=== PATIENT | male | born 1970 | race African-American/Black ===

== ENCOUNTER 2016-09-26 15:22 | Inpatient (IN) | payer MEDICAID ==
[~2016-09-26] VITALS: Ht 198.1 cm; Wt 134.0 kg
[2016-09-26] MEDS ORDERED: SODIUM CHLORIDE FLUSH 10ML SYR IVF ONE (15:30)
[2016-09-26] MEDS ORDERED: ALBUTEROL/IPRATROPIUM 2.5MG/0.5MG, 3 ML NPPB ONE (15:30)
[2016-09-26] MEDS ORDERED: ALBUTEROL/IPRATROPIUM 2.5MG/0.5MG, 3 ML ONE ×2 (15:47→20:58)
[2016-09-26 16:00] LABS: BLOOD UREA NITROGEN 15 mg/dL (7-18)
[2016-09-26 16:05] LABS: IS PT STATUS REG ER OR PRE ER? YES
[2016-09-26] MEDS ORDERED: FUROSEMIDE 20 MG/2 ML IV ONE (16:30)
[2016-09-26] MEDS ORDERED: NITROGLYCERIN OINT 2%, 1GM TP ONE ×2 (16:30→16:37)
[2016-09-26] MEDS ORDERED: FUROSEMIDE 40 MG/4 ML ONE (16:36)
[2016-09-26] MEDS ORDERED: ASPIRIN 81 MG TABLET CHEW ONE ×2 (16:37)
[2016-09-26 16:44] LABS: DIFF TOTAL CELLS COUNTED 100 CELL DIFF
[2016-09-26] MEDS ORDERED: BENZONATATE 100 MG CAPSULE PO SCH (17:00)
[2016-09-26] MEDS ORDERED: ASPIRIN 81 MG TABLET CHEW PO ONE (17:00)
[2016-09-26 17:16] LABS: VERIFY COUNTS? YES
[2016-09-26] MEDS ORDERED: ENALAPRILAT 1.25 MG/ML, 2ML IV ONE (17:30)
[2016-09-26] MEDS ORDERED: ENALAPRILAT 1.25 MG/ML, 2ML ONE (17:34)
[2016-09-26] MEDS ORDERED: METF100010 PO (17:54)
[2016-09-26] MEDS ORDERED: METF500T27 PO (17:54)
[2016-09-26] MEDS ORDERED: AMLO10TA4 PO (17:56)
[2016-09-26] MEDS ORDERED: ALBU1.25 NEB (17:56)
[2016-09-26] MEDS ORDERED: LABETALOL 100 MG TABLET PO ONE (18:00)
[2016-09-26] MEDS ORDERED: LABETALOL 5MG/ML, 20ML IVPush ONE (18:00)
[2016-09-26] MEDS ORDERED: ALBU8.5H3 INH (18:01)
[2016-09-26] MEDS ORDERED: BENZONATATE 100 MG CAPSULE PO ONE (18:07)
[2016-09-26] MEDS ORDERED: morphine SULFATE 10 MG/ML, 1ML IVPush PRN (20:00)
[2016-09-26] MEDS ORDERED: LABETALOL 5MG/ML, 20ML IVPush PRN (20:00)
[2016-09-26] MEDS ORDERED: NITROGLYCERIN 0.4 MG BOTTLE (25 TABS) SL PRN (20:00)
[2016-09-26] MEDS ORDERED: ONDANSETRON 2MG/ML, 2ML IVPush PRN (20:00)
[2016-09-26 20:52] VITALS: BP 152/88
[2016-09-26] MEDS: FUROSEMIDE 20 MG/2 ML IV SCH (21:14)
[2016-09-26] MEDS: POTASSIUM CHLORIDE 20 MEQ TAB.ER.PRT PO SCH (21:14)
[2016-09-26] MEDS: ENOXAPARIN 40 MG/0.4 ML SQ SCH (21:15)
[2016-09-26] MEDS ORDERED: ALBUTEROL/IPRATROPIUM 2.5MG/0.5MG, 3 ML NPPB PRN (22:00)
[2016-09-26 22:16] LABS: IS PT STATUS REG ER OR PRE ER? NO
[2016-09-26] MEDS ORDERED: ENALAPRILAT 1.25 MG/ML, 2ML IV PRN (23:30)
[2016-09-27 01:44] VITALS: BP 154/94
[2016-09-27 03:53] LABS: BLOOD UREA NITROGEN 16 mg/dL (7-18)
[2016-09-27 03:57] LABS: DIFF TOTAL CELLS COUNTED 100 CELL DIFF
[2016-09-27 04:06] LABS: IS PT STATUS REG ER OR PRE ER? NO
[2016-09-27 04:08] LABS: VERIFY COUNTS? YES
[2016-09-27] MEDS: FUROSEMIDE 20 MG/2 ML IV SCH ×2 (07:14→15:23)
[2016-09-27] MEDS: LABETALOL 100 MG TABLET PO SCH ×2 (07:15→15:23)
[2016-09-27 07:16] VITALS: BP 155/92
[2016-09-27] MEDS: ALBUTEROL/IPRATROPIUM 2.5MG/0.5MG, 3 ML NPPB SCH ×4 (07:35→19:43)
[2016-09-27] MEDS: POTASSIUM CHLORIDE 20 MEQ TAB.ER.PRT PO SCH ×2 (08:00→15:23)
[2016-09-27] MEDS ORDERED: REGADENOSON 0.4 MG/5 ML SYRINGE ONE (08:55)
[2016-09-27] MEDS: LISINOPRIL 5 MG TABLET PO SCH ×2 (11:00→19:55)
[2016-09-27 14:23] VITALS: BP 169/96
[2016-09-27] MEDS ORDERED: METHOCARBAMOL 500 MG TABLET PO ONE (18:30)
[2016-09-27] MEDS: ENOXAPARIN 40 MG/0.4 ML SQ SCH (19:56)
[2016-09-27 20:00] VITALS: BP 149/81
[2016-09-28 03:51] VITALS: BP 156/96
[2016-09-28] MEDS: ALBUTEROL/IPRATROPIUM 2.5MG/0.5MG, 3 ML NPPB SCH ×4 (05:39→19:15)
[2016-09-28] MEDS: FUROSEMIDE 20 MG/2 ML IV SCH (05:49)
[2016-09-28 07:45] VITALS: BP 156/103
[2016-09-28] MEDS: LISINOPRIL 5 MG TABLET PO SCH (08:18)
[2016-09-28] MEDS: POTASSIUM CHLORIDE 20 MEQ TAB.ER.PRT PO SCH ×2 (08:18→16:29)
[2016-09-28] MEDS: LABETALOL 100 MG TABLET PO SCH ×4 (08:18→21:13)
[2016-09-28] MEDS: LISINOPRIL 10 MG TABLET PO SCH ×2 (09:00→21:12)
[2016-09-28 12:46] VITALS: BP 160/91
[2016-09-28] MEDS: NICOTINE 14MG/24 HR PATCH.TD24 TD SCH (13:00)
[2016-09-28 13:14] LABS: BLOOD UREA NITROGEN 20 mg/dL (7-18)
[2016-09-28] MEDS ORDERED: CARVEDILOL 3.125 MG TABLET PO SCH (18:00)
[2016-09-28 19:21] VITALS: BP 154/86
[2016-09-28] MEDS: ENOXAPARIN 40 MG/0.4 ML SQ SCH (21:10)
[2016-09-29 02:00] VITALS: BP 114/69
[2016-09-29] MEDS: ALBUTEROL/IPRATROPIUM 2.5MG/0.5MG, 3 ML NPPB SCH ×3 (03:59→11:42)
[2016-09-29 05:36] LABS: BLOOD UREA NITROGEN 21 mg/dL (7-18)
[2016-09-29 07:36] VITALS: BP 146/94
[2016-09-29] MEDS ORDERED: FUROSEMIDE 40 MG TABLET PO SCH (09:00)
[2016-09-29] MEDS ORDERED: SODIUM CHLORIDE 0.9% 1,000 ML IV ONE (10:32)
[2016-09-29] MEDS: LABETALOL 100 MG TABLET PO SCH (10:53)
[2016-09-29] MEDS: LISINOPRIL 10 MG TABLET PO SCH (10:53)
[2016-09-29] MEDS: POTASSIUM CHLORIDE 20 MEQ TAB.ER.PRT PO SCH (10:53)
[2016-09-29 12:50] VITALS: BP 145/92
[2016-09-29] MEDS: NICOTINE 14MG/24 HR PATCH.TD24 TD SCH (13:00)
[2016-09-29] MEDS ORDERED: FURO40TA6 PO (13:35)
[2016-09-29] MEDS ORDERED: PRED10TA PO (13:35)
[2016-09-29] MEDS ORDERED: LABE100T3 PO (13:35)
[2016-09-29] MEDS ORDERED: LISI-167 PO (13:35)
[2016-09-29] MEDS ORDERED: POTA20TA6 PO (13:35)
== END 2016-09-29 15:09 | disposition home or self-care (01) | DRG 280 ==
LOC: ED 15:43 → EDIP 18:37 → 5SO 20:15
PROVIDERS: ADMIT Internal Medicine; ATTEND Internal Medicine
DX: I21.4 Non-ST elevation (NSTEMI) myocardial infarction (principal); J96.01 Acute respiratory failure with hypoxia; I50.43 Acute on chronic combined systolic (congestive) and diastolic (congestive) heart failure; J44.1 Chronic obstructive pulmonary disease with (acute) exacerbation; J45.901 Unspecified asthma with (acute) exacerbation; E44.1 Mild protein-calorie malnutrition; I16.9 Hypertensive crisis, unspecified; I11.0 Hypertensive heart disease with heart failure; Z91.19 Patient's noncompliance with other medical treatment and regimen; Z91.14 Patient's other noncompliance with medication regimen; E11.9 Type 2 diabetes mellitus without complications; F17.200 Nicotine dependence, unspecified, uncomplicated; Z68.34 Body mass index [BMI] 34.0-34.9, adult; E66.9 Obesity, unspecified; I27.2 Other secondary pulmonary hypertension; I27.81 Cor pulmonale (chronic); I34.0 Nonrheumatic mitral (valve) insufficiency; D64.9 Anemia, unspecified
CPT/HCPCS: 36415; 71010; 78452; 80048; 80061; 82040; 83036; 83735; 83880; 84100; 84132; 84484; 85025; 85610; 93005; 93017; 93306; 94640; 96374; 96375; J1650; J2785; J7620; A9502; C9898; J1940; J7512

== ENCOUNTER 2016-12-16 08:17 | Emergency (ER) | payer MEDICAID ==
[~2016-12-16] VITALS: Ht 198.1 cm; Wt 136.0 kg
[~2016-12-16 08:17] MED LIST: ALBU1.25 NEB; ALBU8.5H8 INH; AMLO10TA4 PO; FURO40TA6 PO; LABE100T3 PO; LISI-167 PO; METF100010 PO; METF500T27 PO; POTA20TA6 PO; PRED10TA PO
[2016-12-16 08:50] LABS: HEMATOCRIT 42.6 % (39.2-51.8); HEMOGLOBIN 13.9 g/dL (13.7-18.0); WHITE BLOOD COUNT 6.1 x10^3/uL (3.4-10)
[2016-12-16 09:03] LABS: BLOOD UREA NITROGEN 16 mg/dL (7-18)
[2016-12-16] MEDS ORDERED: LABETALOL 100 MG TABLET PO ONE (09:30)
[2016-12-16 09:38] VITALS: BP 193/136
[2016-12-16 09:40] LABS: IS PT STATUS REG ER OR PRE ER? YES
== END 2016-12-16 10:55 | disposition home or self-care (01) ==
LOC: ED 09:07
DX: Z76.0 Encounter for issue of repeat prescription (principal); I11.0 Hypertensive heart disease with heart failure; I50.9 Heart failure, unspecified; F12.10 Cannabis abuse, uncomplicated; K08.89 Other specified disorders of teeth and supporting structures; J45.909 Unspecified asthma, uncomplicated
CPT/HCPCS: 36415; 70450; 80048; 82040; 84484; 85025; 93005

== ENCOUNTER 2017-01-28 13:47 | Emergency (ER) | payer MEDICAID ==
[~2017-01-28] VITALS: Ht 198.1 cm; Wt 123.0 kg
[2017-01-28] MEDS ORDERED: ENALAPRILAT 1.25 MG/ML, 2ML IV ONE (14:00)
[2017-01-28] MEDS ORDERED: DIPHENHYDRAMINE 50 MG/ML, 1ML IVPush ONE (14:00)
[2017-01-28] MEDS ORDERED: PLEASE ENTER HEIGHT AND WEIGHT MC SCH (14:00)
[2017-01-28] MEDS ORDERED: ENALAPRILAT 1.25 MG/ML, 2ML ONE (14:18)
[2017-01-28] MEDS ORDERED: DIPHENHYDRAMINE 50 MG/ML, 1ML ONE (14:18)
[2017-01-28] MEDS ORDERED: ALBUTEROL/IPRATROPIUM 2.5MG/0.5MG, 3 ML NPPB ONE (14:30)
[2017-01-28] MEDS ORDERED: ALBUTEROL/IPRATROPIUM 2.5MG/0.5MG, 3 ML ONE (14:30)
[2017-01-28 14:37] LABS: ASPARTATE AMINO TRANSFERASE 21 U/L (15-37); BLOOD UREA NITROGEN 11 mg/dL (7-18)
[2017-01-28 14:42] LABS: IS PT STATUS REG ER OR PRE ER? YES
[2017-01-28 14:43] LABS: HEMATOCRIT 42.5 % (39.2-51.8); HEMOGLOBIN 14.2 g/dL (13.7-18.0); WHITE BLOOD COUNT 6.6 x10^3/uL (3.4-10)
[2017-01-28] MEDS ORDERED: SODIUM CHLORIDE FLUSH 10ML SYR IVF ONE (15:00)
[2017-01-28] MEDS ORDERED: SODIUM CHLORIDE 0.9% 1,000ML IVBOLUS ONE (15:00)
[2017-01-28 15:17] VITALS: BP 161/124
[2017-01-28] MEDS ORDERED: ACETAMINOPHEN 500 MG TABLET ONE (16:30)
[2017-01-28] MEDS ORDERED: ACETAMINOPHEN 325 MG TABLET PO ONE (17:00)
[2017-01-28] MEDS ORDERED: ACETAMINOPHEN 500 MG TABLET PO ONE (17:00)
== END 2017-01-28 16:54 | disposition home or self-care (01) ==
LOC: ED 15:03 → UNDOADMIN 15:11 → EDIP 15:11 → ED 16:48
DX: I16.9 Hypertensive crisis, unspecified (principal); R51 Headache; I10 Essential (primary) hypertension; J45.909 Unspecified asthma, uncomplicated
CPT/HCPCS: 36415; 71010; 80053; 83880; 84484; 85025; 93005; 94640; 96361; 96374; 96375; 99291; J1200; J7030; J7620

== ENCOUNTER 2018-01-05 04:27 | Emergency (ER) | payer MEDICAID ==
[~2018-01-05] VITALS: Ht 198.1 cm; Wt 151.0 kg
[~2018-01-05 04:27] MED LIST changes: -LABE100T3 PO; +LABE100T6 PO
[2018-01-05 04:29] VITALS: BP 199/118
[2018-01-05] MEDS ORDERED: KETOROLAC 30 MG/1 ML IM ONE (05:00)
[2018-01-05] MEDS ORDERED: DEXAMETHASONE 4 MG TABLET PO ONE (05:00)
[2018-01-05] MEDS ORDERED: DEXAMETHASONE 4 MG TABLET ONE (05:09)
[2018-01-05] MEDS ORDERED: KETOROLAC 30 MG/1 ML ONE (05:10)
== END 2018-01-05 05:27 | disposition home or self-care (01) ==
LOC: ED 05:15
DX: L02.01 Cutaneous abscess of face (principal); I11.0 Hypertensive heart disease with heart failure; I50.9 Heart failure, unspecified; I25.2 Old myocardial infarction; E11.9 Type 2 diabetes mellitus without complications; J45.909 Unspecified asthma, uncomplicated
CPT/HCPCS: 96372; 99283; J1885

== ENCOUNTER 2018-01-21 04:06 | Emergency (ER) | payer MEDICAID ==
[~2018-01-21] VITALS: Ht 190.5 cm; Wt 152.5 kg
[2018-01-21 05:15] LABS: ALANINE AMINOTRANSFERASE 41 U/L (12-78); ALBUMIN 3.2 g/dL (3.4-5.0); ANION GAP 7 mmol/L (5-15); CALCIUM 8.7 mg/dL (8.5-10.1); CHLORIDE 106 mmol/L (98-107); CREATININE 0.97 mg/dL (0.7-1.3)
[2018-01-21 05:17] LABS: BASOPHILS # (AUTO) 0.04 x10^3/uL (0-0.1); BASOPHILS % (AUTO) 1 % (0-1); EOSINOPHILS # (AUTO) 0.14 x10^3/uL (0-0.4); EOSINOPHILS % (AUTO) 2 % (1-7); LYMPHOCYTES # (AUTO) 2.39 x10^3/uL (1-3.4); LYMPHOCYTES % (AUTO) 34 % (22-44); MD NO; MEAN CORPUSCULAR HEMOGLOBIN 26.7 pg (27.5-34.5); MEAN CORPUSCULAR HGB CONC 33.1 g/dL (33.2-36.2); MEAN CORPUSCULAR VOLUME 80.7 fL (81-97); MEAN PLATELET VOLUME 7.5 fL (7.4-10.4); MONOCYTES # (AUTO) 0.46 x10^3/uL (0.2-0.8); MONOCYTES % (AUTO) 7 % (2-9); NEUTROPHILS # (AUTO) 3.92 x10^3/uL (1.8-6.8); NEUTROPHILS % (AUTO) 56 % (42-75); PLATELET COUNT 325 x10^3/uL (130-400); RED BLOOD COUNT 4.71 x10^6/uL (4.38-5.82); RED CELL DISTRIBUTION WIDTH 14.1 % (9.4-14.8)
[2018-01-21 05:19] LABS: ALKALINE PHOSPHATASE 79 U/L (45-117); BILIRUBIN,TOTAL 0.2 mg/dL (0.2-1.0)
[2018-01-21] MEDS ORDERED: LISINOPRIL 10 MG TABLET ONE (05:43)
[2018-01-21] MEDS ORDERED: FUROSEMIDE 40 MG TABLET ONE (05:43)
[2018-01-21 05:54] VITALS: BP 145/86
[2018-01-21] MEDS ORDERED: LISINOPRIL 10 MG TABLET PO ONE (06:00)
[2018-01-21] MEDS ORDERED: FUROSEMIDE 40 MG TABLET PO ONE (06:00)
== END 2018-01-21 06:32 | disposition home or self-care (01) ==
LOC: ED 05:50
DX: R60.0 Localized edema (principal); M79.661 Pain in right lower leg; M79.671 Pain in right foot; M25.571 Pain in right ankle and joints of right foot; M79.662 Pain in left lower leg; M79.672 Pain in left foot; M25.572 Pain in left ankle and joints of left foot; I11.0 Hypertensive heart disease with heart failure; I50.9 Heart failure, unspecified; J45.909 Unspecified asthma, uncomplicated; E11.9 Type 2 diabetes mellitus without complications; I25.2 Old myocardial infarction; Z72.9 Problem related to lifestyle, unspecified
CPT/HCPCS: 36415; 71045; 80053; 83880; 85025; 93005; 93970; 99285

== ENCOUNTER 2018-09-10 12:21 | Observation (INO) | payer MEDICAID ==
[~2018-09-10] VITALS: Ht 198.1 cm; Wt 133.6 kg
--- NOTE | 2018-09-10 12:56 | NUR ---
FSBS >600, STAT GLUCOSE SENT TO LAB
[2018-09-10 13:04] LABS: MICROSCOPIC NOT IND
[2018-09-10 13:04] LABS: ALANINE AMINOTRANSFERASE 30 U/L (12-78); ALBUMIN 3.7 g/dL (3.4-5.0); ANION GAP 11 mmol/L (5-15); CALCIUM 9.2 mg/dL (8.5-10.1); CHLORIDE 89 mmol/L (98-107)
[2018-09-10 13:08] LABS: ALKALINE PHOSPHATASE 96 U/L (45-117); BILIRUBIN,TOTAL 0.5 mg/dL (0.2-1.0); CREATININE 1.82 mg/dL (0.7-1.3); TOTAL PROTEIN 8.5 g/dL (6.4-8.2)
[2018-09-10 13:08] LABS: CULTURE INDICATED? NO
[2018-09-10 13:24] LABS: BASOPHILS # (AUTO) 0.04 x10^3/uL (0-0.1); BASOPHILS % (AUTO) 1 % (0-1); EOSINOPHILS # (AUTO) 0.05 x10^3/uL (0-0.4); EOSINOPHILS % (AUTO) 1 % (1-7); LYMPHOCYTES # (AUTO) 2.68 x10^3/uL (1-3.4); LYMPHOCYTES % (AUTO) 33 % (22-44); MD NO; MEAN CORPUSCULAR HEMOGLOBIN 27.4 pg (27.5-34.5); MEAN CORPUSCULAR HGB CONC 33.1 g/dL (33.2-36.2); MEAN CORPUSCULAR VOLUME 82.7 fL (81-97); MEAN PLATELET VOLUME 8.8 fL (7.4-10.4); MONOCYTES # (AUTO) 0.54 x10^3/uL (0.2-0.8); MONOCYTES % (AUTO) 7 % (2-9); NEUTROPHILS # (AUTO) 4.76 x10^3/uL (1.8-6.8); NEUTROPHILS % (AUTO) 59 % (42-75); PLATELET COUNT 344 x10^3/uL (130-400); RED BLOOD COUNT 5.62 x10^6/uL (4.38-5.82)
[2018-09-10] MEDS ORDERED: SODIUM CHLORIDE 0.9% 1,000ML IVBOLUS ONE (13:30)
[2018-09-10] MEDS ORDERED: INSULIN REGULAR 100 UNITS/ML, 3ML VIAL IVPush ONE (13:30)
[2018-09-10] MEDS ORDERED: SODIUM CHLORIDE FLUSH 10ML SYR IVF ONE (13:30)
[2018-09-10 13:33] LABS: PH, VENOUS 7.391 pH (7.320-7.420)
[2018-09-10] MEDS ORDERED: INSULIN SINGLE DOSE, ER SQ-INSULIN ONE (13:41)
[2018-09-10 13:43] LABS: ACETONE, SERUM Small (20mg/dL) mg/dL (Negative)
[2018-09-10] MEDS ORDERED: AMLO-150 PO (15:25)
[2018-09-10] MEDS ORDERED: GLUCAGON 1 MG IM PRN (16:00)
[2018-09-10] MEDS ORDERED: DEXTROSE 50%, 50ML SYRINGE IVPush PRN (16:00)
[2018-09-10] MEDS ORDERED: POLYETHYLENE GLYCOL 17 GM PACKET PO PRN (16:00)
[2018-09-10] MEDS ORDERED: hydrALAzine 20 MG/ML, 1ML IVPush PRN (16:00)
[2018-09-10] MEDS ORDERED: DEXTROSE 4 GM TAB.CHEW PO PRN (16:00)
[2018-09-10] MEDS ORDERED: ACETAMINOPHEN 325 MG TABLET PO PRN (16:00)
[2018-09-10] MEDS: LACTATED RINGERS 1,000 ML IV SCH (16:00)
[2018-09-10 16:40] LABS: HEMOGLOBIN A1C 13.6 % (4.2-6.3)
[2018-09-10 16:50] VITALS: BP 124/80
[2018-09-10 18:10] LABS: CHOL/HDL RATIO 4.3
[2018-09-10] MEDS: NICOTINE 21 MG/24 HR PATCH.TD24 TD SCH (18:38)
[2018-09-10] MEDS: INSULIN LISPRO 100 UNITS/ML, PEN SQ-INSULIN SCH ×2 (18:45→22:04)
[2018-09-10] MEDS: HEPARIN 5,000 UNITS/ML, 1ML SQ SCH (18:46)
[2018-09-10 18:58] VITALS: BP 121/76
[2018-09-10] MEDS ORDERED: ALBUTEROL SULFATE 2.5 MG/3 ML NPPB PRN (19:30)
[2018-09-10] MEDS: SODIUM CHLORIDE FLUSH 10ML SYR IVF SCH ×2 (21:00→22:06)
[2018-09-10] MEDS: INSULIN GLARGINE 100 UNITS/ML, PEN SQ-INSULIN SCH (22:03)
[2018-09-11 01:51] VITALS: BP 124/87
[2018-09-11] MEDS: HEPARIN 5,000 UNITS/ML, 1ML SQ SCH ×4 (01:51→22:39)
[2018-09-11] MEDS: LACTATED RINGERS 1,000 ML IV SCH ×3 (01:51→16:32)
[2018-09-11 05:55] LABS: BASOPHILS # (AUTO) 0.03 x10^3/uL (0-0.1); BASOPHILS % (AUTO) 0 % (0-1); EOSINOPHILS # (AUTO) 0.12 x10^3/uL (0-0.4); EOSINOPHILS % (AUTO) 2 % (1-7); LYMPHOCYTES % (AUTO) 44 % (22-44); MD NO; MEAN CORPUSCULAR HEMOGLOBIN 27.4 pg (27.5-34.5); MEAN CORPUSCULAR HGB CONC 32.8 g/dL (33.2-36.2); MEAN CORPUSCULAR VOLUME 83.6 fL (81-97); MEAN PLATELET VOLUME 8.6 fL (7.4-10.4); MONOCYTES # (AUTO) 0.52 x10^3/uL (0.2-0.8); MONOCYTES % (AUTO) 8 % (2-9); NEUTROPHILS # (AUTO) 2.95 x10^3/uL (1.8-6.8); NEUTROPHILS % (AUTO) 45 % (42-75); PLATELET COUNT 303 x10^3/uL (130-400); RED CELL DISTRIBUTION WIDTH 13.9 % (9.4-14.8)
[2018-09-11 06:04] LABS: ANION GAP 8 mmol/L (5-15); CALCIUM 8.7 mg/dL (8.5-10.1); CHLORIDE 99 mmol/L (98-107)
[2018-09-11 06:17] LABS: ALANINE AMINOTRANSFERASE 27 U/L (12-78); ALKALINE PHOSPHATASE 79 U/L (45-117); BILIRUBIN,TOTAL 0.5 mg/dL (0.2-1.0); CREATININE 1.06 mg/dL (0.7-1.3); THYROID STIMULATING HORMONE 0.464 mIU/L (0.358-3.740); TOTAL PROTEIN 7.3 g/dL (6.4-8.2)
[2018-09-11] MEDS ORDERED: POTASSIUM CHLORIDE 20 MEQ TAB.ER.PRT PO ONE ×2 (07:00→18:00)
[2018-09-11] MEDS: INSULIN LISPRO 100 UNITS/ML, PEN SQ-INSULIN SCH ×4 (08:27→22:38)
[2018-09-11] MEDS: SODIUM CHLORIDE FLUSH 10ML SYR IVF SCH ×4 (09:00→21:00)
[2018-09-11 09:01] VITALS: BP 130/85
[2018-09-11] MEDS: INSULIN GLARGINE 100 UNITS/ML, PEN SQ-INSULIN SCH ×2 (09:16→22:38)
[2018-09-11 13:00] VITALS: BP 135/74
[2018-09-11] MEDS: NICOTINE 21 MG/24 HR PATCH.TD24 TD SCH (16:33)
[2018-09-11] MEDS: metFORMIN 850 MG TABLET PO SCH (17:49)
[2018-09-11] MEDS ORDERED: INSULIN GLARGINE 100 UNITS/ML, PEN SQ-INSULIN ONE (18:00)
[2018-09-11] MEDS ORDERED: INSULIN LISPRO 100 UNITS/ML, PEN SQ-INSULIN ONE (18:00)
[2018-09-11 19:30] VITALS: BP 142/80
[2018-09-11] MEDS ORDERED: ATORVASTATIN 40 MG TABLET PO SCH (21:00)
[2018-09-12] MEDS: LACTATED RINGERS 1,000 ML IV SCH ×2 (00:07→08:48)
[2018-09-12 01:14] VITALS: BP 144/84
[2018-09-12] MEDS ORDERED: ASPIRIN 81 MG TABLET EC PO SCH (06:00)
[2018-09-12 07:10] VITALS: BP 155/103
[2018-09-12 07:16] LABS: MEAN CORPUSCULAR HEMOGLOBIN 26.6 pg (27.5-34.5); MEAN CORPUSCULAR HGB CONC 32.1 g/dL (33.2-36.2); MEAN CORPUSCULAR VOLUME 82.6 fL (81-97); MEAN PLATELET VOLUME 8.2 fL (7.4-10.4); PLATELET COUNT 293 x10^3/uL (130-400); RED BLOOD COUNT 4.95 x10^6/uL (4.38-5.82); RED CELL DISTRIBUTION WIDTH 14.3 % (9.4-14.8)
[2018-09-12 07:30] LABS: ALBUMIN 2.9 g/dL (3.4-5.0); ANION GAP 7 mmol/L (5-15); CALCIUM 8.7 mg/dL (8.5-10.1); CHLORIDE 104 mmol/L (98-107); CREATININE 0.91 mg/dL (0.7-1.3)
[2018-09-12 07:34] LABS: BASOPHILS # (AUTO) 0.02 x10^3/uL (0-0.1); BASOPHILS % (AUTO) 0 % (0-1); EOSINOPHILS # (AUTO) 0.17 x10^3/uL (0-0.4); EOSINOPHILS % (AUTO) 3 % (1-7); LYMPHOCYTES # (AUTO) 2.31 x10^3/uL (1-3.4); LYMPHOCYTES % (AUTO) 39 % (22-44); MD SCAN; MONOCYTES % (AUTO) 7 % (2-9); NEUTROPHILS # (AUTO) 3.08 x10^3/uL (1.8-6.8); NEUTROPHILS % (AUTO) 52 % (42-75)
[2018-09-12] MEDS: metFORMIN 850 MG TABLET PO SCH (08:45)
[2018-09-12] MEDS: HEPARIN 5,000 UNITS/ML, 1ML SQ SCH (08:46)
[2018-09-12] MEDS: INSULIN GLARGINE 100 UNITS/ML, PEN SQ-INSULIN SCH (08:47)
[2018-09-12] MEDS: INSULIN LISPRO 100 UNITS/ML, PEN SQ-INSULIN SCH (08:47)
[2018-09-12] MEDS ORDERED: LISINOPRIL 20 MG TABLET PO ONE (09:30)
[2018-09-12] MEDS ORDERED: GLIPizide ER 5 MG TABLET PO SCH (10:00)
[2018-09-12] MEDS ORDERED: ALBUTEROL SULFATE 2.5 MG/3 ML NPPB PRN (10:00)
[2018-09-13] MEDS ORDERED: LISINOPRIL 20 MG TABLET PO SCH (09:00)
== END 2018-09-12 09:43 | disposition left against medical advice (07) ==
LOC: ED 14:15 → INTOOBSV 14:53 → EDIP 14:53 → 3NE 16:16
PROVIDERS: ADMIT Internal Medicine; ATTEND Internal Medicine
DX: E11.65 Type 2 diabetes mellitus with hyperglycemia (principal); N17.9 Acute kidney failure, unspecified; I11.0 Hypertensive heart disease with heart failure; I50.9 Heart failure, unspecified; H53.9 Unspecified visual disturbance; E87.1 Hypo-osmolality and hyponatremia; J44.9 Chronic obstructive pulmonary disease, unspecified; F17.210 Nicotine dependence, cigarettes, uncomplicated; E66.9 Obesity, unspecified; Z91.14 Patient's other noncompliance with medication regimen; Z68.34 Body mass index [BMI] 34.0-34.9, adult; Z79.4 Long term (current) use of insulin
CPT/HCPCS: 36415; 71045; 76770; 80053; 80061; 80069; 81003; 82010; 82803; 82947; 82962; 83036; 83735; 83930; 84443; 85025; 93005; 94640; 96361; 96372; 96374; 99285; G0378; J1644; J1815; J7030; J7120; J7613

== ENCOUNTER 2018-10-07 23:49 | Emergency (ER) | payer MEDICAID ==
[~2018-10-07] VITALS: Ht 198.1 cm; Wt 133.6 kg
[~2018-10-07 23:49] MED LIST changes: +AMLO-150 PO
[2018-10-08] MEDS ORDERED: DIPHENHYDRAMINE 50 MG/ML, 1ML ONE (00:09)
[2018-10-08] MEDS ORDERED: FAMOTIDINE 20 MG/2 ML ONE (00:09)
[2018-10-08] MEDS ORDERED: methylPREDNISolone SOD SUCC 125 MG/2 ML ONE (00:09)
--- NOTE | 2018-10-08 00:22 | NUR ---
PIV started, pt medicated per JUN. Pt on all monitors, NSR noted.
[2018-10-08] MEDS ORDERED: SODIUM CHLORIDE FLUSH 10ML SYR IVF ONE (00:30)
[2018-10-08] MEDS ORDERED: methylPREDNISolone SOD SUCC 125 MG/2 ML IVPush ONE (00:30)
[2018-10-08] MEDS ORDERED: DIPHENHYDRAMINE 50 MG/ML, 1ML IVPush ONE (00:30)
[2018-10-08] MEDS ORDERED: FAMOTIDINE 20 MG/2 ML IVPush ONE (00:30)
--- NOTE | 2018-10-08 00:39 | NUR ---
Pt resting on gurney, cool wet gauze on lip for comfort, no decrease in swelling noted at this time. Pt states that he feels very sleepy and pt assured that he may rest. Side rails x 2 up, call light on pt's lap.
--- NOTE | 2018-10-08 01:34 | NUR ---
Dr. Mcqueen at bedside to discuss ED findings and POC. Swelling noted to be unchanged to upper lip/face. Pt requesting food and beverages, ok per MD. Pt requesting to be discharged and states that he will return if swelling worsens.
[2018-10-08 01:41] VITALS: BP 146/87
--- NOTE | 2018-10-08 02:04 | NUR ---
Patient/Caregiver given discharge instructions and they have confirmed that they understand the instructions. Patient ambulatory with steady gait.
== END 2018-10-08 02:05 | disposition home or self-care (01) ==
LOC: ED 10-08 00:35
DX: T78.3XXA Angioneurotic edema, initial encounter (principal); F17.200 Nicotine dependence, unspecified, uncomplicated; I25.2 Old myocardial infarction; I50.9 Heart failure, unspecified; I11.0 Hypertensive heart disease with heart failure; E11.9 Type 2 diabetes mellitus without complications; J45.909 Unspecified asthma, uncomplicated
CPT/HCPCS: 96374; 96375; 99283; J1200; J2930; J3490

== ENCOUNTER 2019-11-11 14:23 | Emergency (ER) | payer MEDICAID ==
[~2019-11-11] VITALS: Ht 198.1 cm; Wt 143.0 kg
[~2019-11-11 14:23] MED LIST changes: +GLYBURIDE; +METF500T17 PO
--- NOTE | 2019-11-11 15:00 | NUR ---
PT BIB P/V FOR UPPER LIP SWELLING AFTER TAKING LISINOPRIL. PT HAD BEEN TOLD TO STAOP TAKING LISINOPRIL AFTER SAME INCIDENT IN THE PAST, STARTED ON AMLODIPINE BUT WAS STOPPED DUE TO LEG SWELLING. PT WAS THEN STARTED ON LISINOPRIL AGAIN PER PMD.
[2019-11-11 15:58] LABS: MEAN CORPUSCULAR HEMOGLOBIN 26.1 pg (27.5-34.5); MEAN CORPUSCULAR HGB CONC 31.9 g/dL (33.2-36.2); MEAN PLATELET VOLUME 7.5 fL (7.4-10.4); PLATELET COUNT 375 x10^3/uL (130-400); RED BLOOD COUNT 5.05 x10^6/uL (4.38-5.82); RED CELL DISTRIBUTION WIDTH 14.9 % (9.4-14.8)
[2019-11-11 16:04] LABS: ALANINE AMINOTRANSFERASE 24 U/L (12-78); ALBUMIN 3.4 g/dL (3.4-5.0); ANION GAP 5 mmol/L (5-15); CALCIUM 6.4 mg/dL (8.5-10.1); CHLORIDE 102 mmol/L (98-107); CREATININE 1.07 mg/dL (0.7-1.3)
[2019-11-11 16:07] LABS: ALKALINE PHOSPHATASE 60 U/L (45-117); BILIRUBIN,TOTAL 0.4 mg/dL (0.2-1.0); TOTAL PROTEIN 7.7 g/dL (6.4-8.2)
[2019-11-11] MEDS ORDERED: DIPHENHYDRAMINE 50 MG CAPSULE PO ONE (16:14)
[2019-11-11] MEDS ORDERED: POTASSIUM CHLORIDE 20 MEQ PACKET PO ONE (16:30)
[2019-11-11] MEDS ORDERED: CALCIUM GLUCONATE 0.46MEQ/1ML IVPush ONE (16:30)
[2019-11-11 16:40] LABS: BASOPHILS % (AUTO) 0 % (0-1); EOSINOPHILS # (AUTO) 0.05 x10^3/uL (0-0.4); EOSINOPHILS % (AUTO) 1 % (1-7); LYMPHOCYTES # (AUTO) 2.01 x10^3/uL (1-3.4); LYMPHOCYTES % (AUTO) 20 % (22-44); MD SCAN; MONOCYTES # (AUTO) 0.36 x10^3/uL (0.2-0.8); MONOCYTES % (AUTO) 4 % (2-9); NEUTROPHILS # (AUTO) 7.45 x10^3/uL (1.8-6.8); NEUTROPHILS % (AUTO) 76 % (42-75)
[2019-11-11] MEDS ORDERED: POTASSIUM CHLORIDE 20 MEQ TAB.ER.PRT ONE (17:03)
[2019-11-11] MEDS ORDERED: DIPHENHYDRAMINE 50 MG CAPSULE ONE (17:03)
--- NOTE | 2019-11-11 17:16 | NUR ---
pt medicated as ordered. pt o get calcium over one hour then will be dc'd per md.
[2019-11-11 17:17] VITALS: BP 173/105
[2019-11-11] MEDS ORDERED: SODIUM CHLORIDE FLUSH 10ML SYR IVF ONE (17:30)
[2019-11-11] MEDS ORDERED: CALCIUM GLUCONATE 4.6 MEQ in SODIUM CHLORIDE 0.9% 100 ML IV ONE (17:30)
== END 2019-11-11 18:27 | disposition home or self-care (01) ==
LOC: ED 16:40
DX: T78.3XXA Angioneurotic edema, initial encounter (principal); R10.84 Generalized abdominal pain; I11.0 Hypertensive heart disease with heart failure; K59.00 Constipation, unspecified; E83.51 Hypocalcemia; E11.9 Type 2 diabetes mellitus without complications; I50.9 Heart failure, unspecified; I25.2 Old myocardial infarction; F17.200 Nicotine dependence, unspecified, uncomplicated
CPT/HCPCS: 36415; 74021; 80053; 83690; 83735; 85025; 96365; 99284; J0610; J7512

== ENCOUNTER 2020-04-03 09:57 | Inpatient (IN) | payer MEDICAID ==
[~2020-04-03] VITALS: Ht 198.1 cm; Wt 152.0 kg
--- NOTE | 2020-04-03 10:14 | NUR ---
PT IS A 49/M COMPLAINING OF SOB X 2 WEEKS. HE HAS BEEN TAKING NEB TREATMENTS AT HOME BUT RAN OUT OF THE MEDS. ALSO RAN OUT OF BP MEDS YESTERDAY. BP 195/130 THIS MORNING. PATIENT IS REQUESTING BREATHING TREATMENT. HE IS SPEAKING IN 3-4 WORD SENTENCES AND APPEARS TO BE IN SOME DISTRESS. CALL LIGHT WITHIN REACH.
--- NOTE | 2020-04-03 10:20 | NUR ---
PLACED PT ON 2L ON, SP02 MONITOR AND CARDIACT MONITOR
[2020-04-03] MEDS ORDERED: ALBUTEROL/IPRATROPIUM 2.5MG/0.5MG, 3 ML NPPB ONE (10:30)
[2020-04-03] MEDS ORDERED: DEXAMETHASONE 4 MG TABLET PO ONE (10:30)
[2020-04-03] MEDS ORDERED: SODIUM CHLORIDE 0.9% 1,000 ML IV ONE (10:30)
[2020-04-03] MEDS ORDERED: DEXAMETHASONE 4 MG TABLET ONE (10:42)
[2020-04-03] MEDS ORDERED: ALBUTEROL/IPRATROPIUM 2.5MG/0.5MG, 3 ML ONE (11:08)
[2020-04-03 11:10] LABS: BASOPHILS % (AUTO) 1 % (0-1); EOSINOPHILS % (AUTO) 2 % (1-7); LYMPHOCYTES % (AUTO) 37 % (22-44); MEAN CORPUSCULAR HEMOGLOBIN 26.6 pg (27.5-34.5); MEAN CORPUSCULAR HGB CONC 33.1 g/dL (33.2-36.2); MEAN PLATELET VOLUME 6.8 fL (7.4-10.4); MONOCYTES % (AUTO) 7 % (2-9); NEUTROPHILS % (AUTO) 53 % (42-75); PLATELET COUNT 355 x10^3/uL (130-400); RED BLOOD COUNT 4.13 x10^6/uL (4.38-5.82); RED CELL DISTRIBUTION WIDTH 15.3 % (9.4-14.8)
[2020-04-03 11:12] LABS: MD NO
--- NOTE | 2020-04-03 11:12 | NUR ---
MEDICATED PATIENT PER EMAR AND GAVE DUONEB TREATMENT. PER DR REED, NO IV NEEDED, WILL CANCEL FLUID ORDER. NO ADDITIONAL NEEDS AT THIS TIME.
[2020-04-03 11:20] LABS: ALBUMIN 3.5 g/dL (3.4-5.0); ANION GAP 6 mmol/L (5-15); CALCIUM 8.8 mg/dL (8.5-10.1); CHLORIDE 110 mmol/L (98-107); CREATININE 1.02 mg/dL (0.7-1.3)
[2020-04-03 11:24] LABS: TROPONIN I 0.113 ng/mL (0.000-0.045)
--- NOTE | 2020-04-03 11:32 | NUR ---
PT STATES THE BREATHING TREATMENT HELPED A LITTLE BUT HE IS STILL SOB. WILL RELAY THIS INFORMATION TO THE
[2020-04-03] MEDS ORDERED: CEFTRIAXONE PMX 1GM/50ML 50 ML IV ONE (12:00)
[2020-04-03] MEDS ORDERED: LABETALOL 5MG/ML, 20ML IVPush ONE (12:00)
[2020-04-03] MEDS ORDERED: AZITHROMYCIN 500 MG in SODIUM CHLORIDE 0.9% 250 ML IV ONE (12:00)
--- NOTE | 2020-04-03 12:00 | NUR ---
CT DELAYED DUE TO ONE ROOM CLOSED FOR COVID EXPOSURE
--- NOTE | 2020-04-03 12:13 | NUR ---
preceptor RN: IV attmept for CTA unsuccessful. primary RN notified
--- NOTE | 2020-04-03 12:29 | NUR ---
REPORT TO WAYNE CHEW FOR LUNCH BREAK
[2020-04-03] MEDS ORDERED: ASPIRIN 81 MG TABLET CHEW PO ONE (12:30)
[2020-04-03] MEDS ORDERED: ASPIRIN 81 MG TABLET CHEW ONE (12:41)
[2020-04-03] MEDS ORDERED: CEFTRIAXONE PMX 1GM/50ML 50 ML ONE (12:42)
[2020-04-03] MEDS ORDERED: LABETALOL 5MG/ML, 20ML ONE (12:43)
--- NOTE | 2020-04-03 12:55 | NUR ---
assumed care of pt. report from Anil CHEW. pt here for SOB and is still tachypneic after breathing tx. pt to have CTA. pt sitting up on gurney. no family at bedside
--- NOTE | 2020-04-03 13:10 | NUR ---
pt to RAD
[2020-04-03] MEDS ORDERED: OMNIPAQUE 350 MG/ML, 150 ML BOTTLE ONE (13:29)
--- NOTE | 2020-04-03 13:30 | NUR ---
pt has IV ABX ordered, but no BC have been draw, Elvia FAIR notified
--- NOTE | 2020-04-03 13:55 | NUR ---
lab at bedside to draw
--- NOTE | 2020-04-03 14:50 | NUR ---
spoke to Dr. Kenny regarding pending admit. COVID test to be cancelled per
--- NOTE | 2020-04-03 14:55 | NUR ---
pt is agitated and has removed all of his monitoing equipment pt updated on POC. monitoring equipment replaced. pt positioning for comfort
[2020-04-03] MEDS ORDERED: ALBUTEROL HFA 90 MCG/SPRAY INH PRN (15:00)
[2020-04-03] MEDS ORDERED: ONDANSETRON ODT 4 MG PO PRN (15:00)
[2020-04-03] MEDS ORDERED: POLYETHYLENE GLYCOL 17 GM PACKET PO PRN (15:00)
[2020-04-03] MEDS ORDERED: hydrALAzine 20 MG/ML, 1ML IV PRN (15:00)
[2020-04-03] MEDS ORDERED: ENOXAPARIN 40 MG/0.4 ML SQ SCH (15:00)
[2020-04-03] MEDS ORDERED: MELATONIN 5 MG TABLET PO PRN (15:00)
[2020-04-03] MEDS ORDERED: TRAZODONE 50MG TABLET PO PRN (15:00)
[2020-04-03] MEDS ORDERED: ACETAMINOPHEN 325 MG TABLET PO PRN (15:00)
--- NOTE | 2020-04-03 15:00 | NUR ---
lab at bedside to draw
--- NOTE | 2020-04-03 15:10 | NUR ---
pt has been updated on POC. hospital bed has been ordered. meal tray to be ordered. pt positioning for comfort
--- NOTE | 2020-04-03 15:12 | NUR ---
Dr. Kenny at bedside
--- NOTE | 2020-04-03 15:13 | NUR ---
verified with [facility] that COVID test to be cancelled per Dr. Kenny
[2020-04-03 15:29] LABS: CHOLESTEROL, TOTAL 180 mg/dL (140-239); TRIGLYCERIDES 63 mg/dL (50-200); VLDL CHOLESTEROL 13 mg/dL (0-25)
[2020-04-03 15:32] LABS: CHOL/HDL RATIO 3.4; HDL CHOL % 29 % (26-37); HDL CHOLESTEROL (DIRECT) 53 mg/dL (40-60); LDL CHOLESTEROL,CALCULATED 114 mg/dL (54-169); LDL/HDL RATIO 2.2 (0.5-3.0); TROPONIN I 0.095 ng/mL (0.000-0.045)
--- NOTE | 2020-04-03 15:55 | NUR ---
lab at bedside to draw. pt is diaphoretic, but has no CP and no new resp. c/o. pt positioning for comfort. pt c/o that the room is too hot. pt is afebrile
[2020-04-03] MEDS: INSULIN LISPRO 100 UNITS/ML, PEN SQ-INSULIN SCH ×2 (16:00→21:33)
--- NOTE | 2020-04-03 16:20 | NUR ---
pt sleeping. easily arousable. meal tray delivered
--- NOTE | 2020-04-03 16:48 | NUR ---
pt has consumed about 85% of his meal. pt has been moved to hospital bed. pt positioning and lights dimmed for comfort
[2020-04-03] MEDS ORDERED: ENOXAPARIN 40 MG/0.4 ML ONE (17:32)
[2020-04-03] MEDS ORDERED: hydrALAzine 20 MG/ML, 1ML ONE (17:32)
--- NOTE | 2020-04-03 19:09 | NUR ---
pt sleeping. bed assignment received. attempting to call report
--- NOTE | 2020-04-03 19:13 | NUR ---
report called to Adrián CHEW recieving RN aware of pt B/P and agrees to adminster coreg upon admit
--- NOTE | 2020-04-03 19:21 | NUR ---
pt updated on pending admit. pt denies PAIGE, no dizziness, no loss or change of vision, no facial droop noted. pt has no weakness to extremities, moving around on gurney as desired. pt updated on POC and verbalized understanding
[2020-04-03 19:44] VITALS: BP 167/100
[2020-04-03] MEDS: metFORMIN 500 MG TABLET PO SCH (20:07)
[2020-04-03] MEDS: CARVEDILOL 12.5 MG TABLET PO SCH (20:08)
[2020-04-03 21:07] LABS: TROPONIN I 0.059 ng/mL (0.000-0.045)
[2020-04-03 21:32] VITALS: BP 156/92
[2020-04-03 23:49] VITALS: BP 163/111
[2020-04-04 00:16] VITALS: BP 165/105
[2020-04-04] MEDS ORDERED: hydrALAzine 20 MG/ML, 1ML IV ONE (00:30)
[2020-04-04 01:38] VITALS: BP 165/94
[2020-04-04] MEDS ORDERED: hydrALAzine 20 MG/ML, 1ML IV PRN ×2 (03:00)
[2020-04-04 06:04] VITALS: BP 167/100
[2020-04-04] MEDS: CARVEDILOL 12.5 MG TABLET PO SCH (06:07)
[2020-04-04] MEDS: INSULIN LISPRO 100 UNITS/ML, PEN SQ-INSULIN SCH (06:10)
[2020-04-04 07:21] VITALS: BP 165/101
[2020-04-04] MEDS: metFORMIN 500 MG TABLET PO SCH (08:13)
[2020-04-04] MEDS ORDERED: NICOTINE 14MG/24 HR PATCH.TD24 TD SCH (09:00)
[2020-04-04] MEDS ORDERED: AMLODIPINE 10 MG TAB PO SCH (09:00)
[2020-04-04] MEDS ORDERED: SENNA/DOCUSATE TABLET PO SCH (09:00)
== END 2020-04-04 09:04 | disposition left against medical advice (07) | DRG 280 ==
LOC: ED 10:35 → INTOOBSV 14:04 → EDIP 14:04 → OBSVTOIN 14:04 → SUATTDRO 14:15 → 5SO 19:38
PROVIDERS: ADMIT Hospitalist; ATTEND Internal Medicine
DX: I16.1 Hypertensive emergency (principal); J96.00 Acute respiratory failure, unspecified whether with hypoxia or hypercapnia; I21.A1 Myocardial infarction type 2; J12.9 Viral pneumonia, unspecified; J45.51 Severe persistent asthma with (acute) exacerbation; E11.9 Type 2 diabetes mellitus without complications; F12.90 Cannabis use, unspecified, uncomplicated; Z66 Do not resuscitate; F17.210 Nicotine dependence, cigarettes, uncomplicated; I10 Essential (primary) hypertension; I25.2 Old myocardial infarction; Z79.84 Long term (current) use of oral hypoglycemic drugs
CPT/HCPCS: 71045; 71275; 78452; 80048; 80061; 82040; 82962; 83036; 83605; 83615; 83735; 83880; 84484; 85025; 85379; 86140; 87040; 93005; 93306; 93970; G0378; J1650; Q9967; A9502; J0360; J1815; J7030